=== PATIENT | male | born 1990 | race African-American/Black ===

== ENCOUNTER 2021-11-18 10:42 | Inpatient (IN) | payer OTHER ==
[~2021-11-18] VITALS: Ht 210.8 cm; Wt 108.2 kg
[2021-11-18] MEDS ORDERED: NYST50SS PO (10:54)
[2021-11-18] MEDS ORDERED: AUGM500T34 PO (10:54)
[2021-11-18] MEDS ORDERED: NS 1,000 ML IV ONE (12:00)
[2021-11-18] MEDS ORDERED: dexameTHASONE 20MG/5ML VIAL (J1100 PER 1MG) IV ONE (12:00)
[2021-11-18] MEDS ORDERED: METH4PACK PO (12:37)
[2021-11-18] MEDS ORDERED: HOME MED LIST COMPLETE! XX SCH (12:40)
[2021-11-18 12:55] LABS: HEMATOCRIT 46.1 % (42.0-52.0); HEMOGLOBIN 14.6 g/dl (13.5-17.5); MEAN CORPUSCULAR HEMOGLOBIN 24.1 pg (27.0-33.0); MEAN CORPUSCULAR HGB CONC 31.7 g/dl (32.0-36.5); MEAN CORPUSCULAR VOLUME 76.2 fl (80.0-96.0); PLATELET COUNT, AUTOMATED 242 10^3/uL (150-450); RED BLOOD COUNT 6.05 10^6/uL (4.30-6.10); WHITE BLOOD COUNT 12.8 10^3/uL (4.0-10.0)
[2021-11-18] MEDS ORDERED: ISOVUE-370 76% 100ML VIAL As Ordered ONE (13:07)
[2021-11-18 13:15] LABS: ERYTHROCYTE SEDIMENTATION RATE 49 mm/hr (0-15)
[2021-11-18 13:17] LABS: C REACTIVE PROTEIN QUANTITATIV 7.25 MG/DL (0.00-0.30)
[2021-11-18 13:18] LABS: MONO REFLEX EBV COMP NEGATIVE (NEGATIVE)
[2021-11-18 13:25] LABS: ATYPICAL LYMPH 1 % (0-5); LYMPHOCYTES 23 % (16-44); MONOCYTES 3 % (0-5); NEUTROPHILS 67 % (28-66); PLATELET ESTIMATE NORMAL (NORMAL)
[2021-11-18] MEDS ORDERED: AMPICILLIN SOD/SULBACTAM SOD 3 GM in D5W MINI-BAG PLUS 100 ML IV ONE (13:25)
[2021-11-18] MEDS ORDERED: KETOROLAC 30 MG/ML 1ML VIAL IV ONE (13:55)
[2021-11-18] MEDS ORDERED: MOM 30ML SUSPENSION UDC PO PRN (14:10)
[2021-11-18] MEDS ORDERED: oxyCODONE 5MG TAB PO PRN (14:10)
[2021-11-18] MEDS ORDERED: BISACODYL 5 MG TAB PO PRN (14:10)
[2021-11-18] MEDS ORDERED: amLODIPine 5 MG TAB PO ONE (14:15)
[2021-11-18] MEDS ORDERED: HYDROMORPHONE HCL 0.5 MG/ 0.5 ML SYRINGE (J1170 PER 1) IV ONE ×2 (14:15→19:20)
[2021-11-18] MEDS: D5W/0.45% SODIUM CHLORIDE 1,000 ML IV SCH (15:13)
[2021-11-18] MEDS ORDERED: dexameTHASONE 20MG/5ML VIAL (J1100 PER 1MG) IV SCH (20:00)
[2021-11-18] MEDS: KETOROLAC 30 MG/ML 1ML VIAL IV SCH (20:05)
[2021-11-18 20:23] VITALS: BP 136/87
[2021-11-18] MEDS: AMPICILLIN SOD/SULBACTAM SOD 3 GM in D5W MINI-BAG PLUS 100 ML IV SCH (21:20)
[2021-11-18] MEDS: dexameTHASONE 4 MG/ML 1ML VIAL (J1100 PER 1MG) IV SCH (21:20)
[2021-11-18 22:00] VITALS: BP 136/87
[2021-11-19] MEDS: MORPHINE 4 MG/ML 1ML VIAL/SYRINGE IV PRN ×2 (00:52→23:00)
[2021-11-19] MEDS: AMPICILLIN SOD/SULBACTAM SOD 3 GM in D5W MINI-BAG PLUS 100 ML IV SCH ×4 (01:45→20:12)
[2021-11-19] MEDS: KETOROLAC 30 MG/ML 1ML VIAL IV SCH ×5 (01:46→23:00)
[2021-11-19] MEDS: D5W/0.45% SODIUM CHLORIDE 1,000 ML IV SCH ×2 (01:47→13:20)
[2021-11-19] MEDS: dexameTHASONE 4 MG/ML 1ML VIAL (J1100 PER 1MG) IV SCH ×4 (01:47→20:12)
[2021-11-19 05:57] LABS: BASO # 0.1 10^3/uL (0.0-0.2); BASO % 0.4 % (0.0-1.0); EOS # 0.1 10^3/uL (0.0-0.5); EOS % 0.6 % (0.0-3.0); HEMATOCRIT 43.9 % (42.0-52.0); HEMOGLOBIN 13.8 g/dl (13.5-17.5); LYMPH % 15.9 % (24.0-44.0); MEAN CORPUSCULAR HEMOGLOBIN 23.5 pg (27.0-33.0); MEAN CORPUSCULAR HGB CONC 31.4 g/dl (32.0-36.5); MEAN CORPUSCULAR VOLUME 74.9 fl (80.0-96.0); MONO # 0.4 10^3/uL (0.0-0.8); MONO % 3.2 % (2.0-8.0); NEUTROPHILS # 9.8 10^3/uL (1.5-8.5); NEUTROPHILS % 78.2 % (36.0-66.0); PLATELET COUNT, AUTOMATED 233 10^3/uL (150-450); RED BLOOD COUNT 5.86 10^6/uL (4.30-6.10); WHITE BLOOD COUNT 12.6 10^3/uL (4.0-10.0)
[2021-11-19 06:00] VITALS: BP 137/87
[2021-11-19 06:20] LABS: BLOOD UREA NITROGEN 13 MG/DL (7-18); CALCIUM LEVEL 8.9 MG/DL (8.5-10.1); CARBON DIOXIDE LEVEL 25 MEQ/L (21-32); CHLORIDE LEVEL 108 MEQ/L (98-107); CREATININE FOR GFR 0.92 MG/DL (0.70-1.30); GLOMERULAR FILTRATION RATE > 60.0 (>60); GLUCOSE, FASTING 154 MG/DL (70-100); POTASSIUM SERUM 4.6 MEQ/L (3.5-5.1); SODIUM LEVEL 140 MEQ/L (136-145)
[2021-11-19] MEDS ORDERED: HYDROMORPHONE HCL 0.5 MG/ 0.5 ML SYRINGE (J1170 PER 1) IV ONE (08:15)
[2021-11-19 14:00] VITALS: BP 133/86
[2021-11-19] MEDS ORDERED: traMADol 50 MG TAB PO PRN (15:05)
[2021-11-19] MEDS: NS 1,000 ML IV SCH (15:25)
[2021-11-19 16:08] LABS: EBV AB TO NUCLEAR ANTIGEN >600.0 U/mL (0.0-17.9); EBV VIRAL CAPSID AG IgM <36.0 U/mL (0.0-35.9)
[2021-11-19 22:00] VITALS: BP 139/85
[2021-11-20] MEDS: AMPICILLIN SOD/SULBACTAM SOD 3 GM in D5W MINI-BAG PLUS 100 ML IV SCH ×3 (02:58→13:01)
[2021-11-20] MEDS: dexameTHASONE 4 MG/ML 1ML VIAL (J1100 PER 1MG) IV SCH ×3 (02:59→14:01)
[2021-11-20] MEDS: KETOROLAC 30 MG/ML 1ML VIAL IV SCH ×2 (05:12→11:20)
[2021-11-20] MEDS: NS 1,000 ML IV SCH (05:13)
[2021-11-20 06:00] VITALS: BP 140/86
[2021-11-20] MEDS ORDERED: DECA4TAB PO (07:35)
[2021-11-20] MEDS ORDERED: TRAM50TA2 PO (07:35)
[2021-11-20] MEDS ORDERED: AMOX875T2 PO (07:35)
[2021-11-20 07:56] LABS: BASO # 0.1 10^3/uL (0.0-0.2); BASO % 0.3 % (0.0-1.0); HEMATOCRIT 44.4 % (42.0-52.0); HEMOGLOBIN 14.3 g/dl (13.5-17.5); LYMPH # 2.7 10^3/uL (1.5-5.0); LYMPH % 11.2 % (24.0-44.0); MEAN CORPUSCULAR HEMOGLOBIN 23.7 pg (27.0-33.0); MEAN CORPUSCULAR HGB CONC 32.2 g/dl (32.0-36.5); MEAN CORPUSCULAR VOLUME 73.5 fl (80.0-96.0); MONO # 0.8 10^3/uL (0.0-0.8); MONO % 3.4 % (2.0-8.0); NEUTROPHILS # 19.6 10^3/uL (1.5-8.5); NEUTROPHILS % 81.5 % (36.0-66.0); PLATELET COUNT, AUTOMATED 257 10^3/uL (150-450); RED BLOOD COUNT 6.04 10^6/uL (4.30-6.10)
[2021-11-20] MEDS: MORPHINE 4 MG/ML 1ML VIAL/SYRINGE IV PRN (08:09)
[2021-11-20 08:24] LABS: BLOOD UREA NITROGEN 18 MG/DL (7-18); CARBON DIOXIDE LEVEL 25 MEQ/L (21-32); CHLORIDE LEVEL 109 MEQ/L (98-107); CREATININE FOR GFR 0.86 MG/DL (0.70-1.30); GLOMERULAR FILTRATION RATE > 60.0 (>60); GLUCOSE, FASTING 127 MG/DL (70-100); POTASSIUM SERUM 4.3 MEQ/L (3.5-5.1); SODIUM LEVEL 141 MEQ/L (136-145)
== END 2021-11-20 14:07 | disposition home or self-care (01) | DRG 153 ==
LOC: M ED 10:42 → M ED INP 13:59 → M MSPAV 20:23
PROVIDERS: ADMIT General Practice; ATTEND General Practice
DX: J03.90 Acute tonsillitis, unspecified (principal); I10 Essential (primary) hypertension; R13.10 Dysphagia, unspecified; D72.828 Other elevated white blood cell count; J45.909 Unspecified asthma, uncomplicated; Z88.6 Allergy status to analgesic agent; Z91.013 Allergy to seafood; Z91.018 Allergy to other foods; Z91.010 Allergy to peanuts

== ENCOUNTER → 2023-04-28 | Outpatient (CLI) | payer OTHER ==
[~2023-04-28] MED LIST: AMOX875T2 PO; AUGM500T34 PO; DECA4TAB PO; METH4PACK PO; NYST-38 PO; TRAM50TA2 PO
== END ==
LOC: M CARPUL 13:59
PROVIDERS: ATTEND General Practice
DX: R06.2 Wheezing (principal)

== ENCOUNTER → 2024-07-25 | Outpatient (CLI) | payer OTHER | LOC: M CARPUL 09:59 | PROVIDERS: ATTEND Internal Medicine | DX: R06.09 Other forms of dyspnea (principal) ==